=== PATIENT | female | born 1960 | race Caucasian/White ===

== ENCOUNTER → 2017-03-24 | Outpatient (REF) | payer BC ==
[~2017-03-24] MED LIST: NAPR250T45 PO; PRIL20CA9 PO; TYLE500T78 PO; ZYRT10CA PO
== END ==
LOC: M LAB REF 16:14
PROVIDERS: ATTEND Otolaryngology
DX: K14.3 Hypertrophy of tongue papillae (principal); R23.4 Changes in skin texture; L85.8 Other specified epidermal thickening

== ENCOUNTER → 2017-10-05 | Outpatient (REF) | payer BC | LOC: M LAB REF 13:37 | PROVIDERS: ATTEND Otolaryngology | DX: C02.1 Malignant neoplasm of border of tongue (principal) ==

== ENCOUNTER → 2018-06-14 | Outpatient (REF) | payer BC | LOC: M LAB REF 18:59 | DX: C02.1 Malignant neoplasm of border of tongue (principal) | CPT/HCPCS: 88305 ==

== ENCOUNTER 2022-05-08 11:13 | Day surgery (SDC) | payer OTHER ==
[~2022-05-08] VITALS: Ht 157.5 cm; Wt 82.1 kg
[~2022-05-08 11:13] MED LIST changes: +ACET-683 PO; +ALLE10TA62 PO; +D 101000 PO; +HUMI40KI SC; +NAPR-849 PO; -NAPR250T45 PO; +NAPR250T82 PO; +OMEP10CASR PO; +dexameTHASONE 4 MG/ML 1ML VIAL (J1100 PER 1MG) IV ONE
[2022-05-08] MEDS ORDERED: LR 1,000 ML IV SCH (11:25)
[2022-05-08 12:56] LABS: INR 0.96; PROTHROMBIN TIME 13.1 SECONDS (12.7-14.5)
[2022-05-08 12:57] LABS: PARTIAL THROMBOPLASTIN TIME 31.9 SECONDS (25.9-37.0)
[2022-05-08] MEDS ORDERED: OXYMETAZOLINE 0.05% NASAL SPRAY (AFRIN) As Ordered ONE ×2 (14:23→14:36)
[2022-05-08] MEDS ORDERED: LIDOCAINE W/EPINEPHRINE 1% 20ML VIAL As Ordered ONE (14:23)
[2022-05-08] MEDS ORDERED: METHYLENE BLUE 0.5% (5MG/ML) 10 ML AMP (PROVAYBLUE) As Ordered ONE (14:23)
[2022-05-08] MEDS ORDERED: dexameTHASONE 4 MG/ML 1ML VIAL (J1100 PER 1MG) As Ordered ONE (14:41)
[2022-05-08] MEDS ORDERED: fentaNYL 100 MCG/2 ML INJECTION As Ordered ONE ×2 (14:41→15:04)
[2022-05-08] MEDS ORDERED: propofoL 200 MG/20 ML VIAL As Ordered ONE (14:41)
[2022-05-08] MEDS ORDERED: LIDOCAINE 2% 100MG/5ML SDV (FOR ANES.) As Ordered ONE (14:41)
[2022-05-08] MEDS ORDERED: ROCURONIUM BROMIDE 50 MG/5 ML VIAL As Ordered ONE (14:41)
[2022-05-08] MEDS ORDERED: METOCLOPRAMIDE INJ 10MG/2ML VIAL (J2765 PER 1) As Ordered ONE (14:41)
[2022-05-08] MEDS ORDERED: ONDANSETRON 4MG 2ML VIAL As Ordered ONE (14:41)
[2022-05-08] MEDS ORDERED: SUGAMMADEX SODIUM 500 MG/5 ML VIAL (BRIDION) As Ordered ONE (14:41)
[2022-05-08] MEDS ORDERED: MIDAZOLAM INJ 2MG/2ML VIAL (J2250 PER 1MG) As Ordered ONE (14:41)
[2022-05-08] MEDS ORDERED: ACETAMINOPHEN 1000MG 100ML IV BTL (OFIRMEV) (J0131 PER 10MG) As Ordered ONE (15:13)
[2022-05-08] MEDS ORDERED: SILVER NITRATE APPLICATOR (1 = QTY 10) As Ordered ONE (15:45)
[2022-05-08 17:35] VITALS: BP 146/84
== END 2022-05-08 17:46 | disposition home or self-care (01) ==
LOC: M SDC 11:13
PROVIDERS: ATTEND Otolaryngology
DX: B49 Unspecified mycosis (principal); K13.29 Other disturbances of oral epithelium, including tongue; R23.4 Changes in skin texture; K14.0 Glossitis; M06.9 Rheumatoid arthritis, unspecified; K21.9 Gastro-esophageal reflux disease without esophagitis; Z88.8 Allergy status to other drugs, medicaments and biological substances
CPT/HCPCS: 31536; 36415; 85610; 85730; 88305; 88312; 93005; J0131; J1100; J2250; J2405; J2765; J3010; Q9968

== ENCOUNTER 2024-02-04 07:57 | Day surgery (SDC) | payer OTHER ==
[~2024-02-04] VITALS: Ht 149.9 cm; Wt 83.9 kg
[~2024-02-04 07:57] MED LIST changes: +ALEV220T22 PO; +CALTCHW5 PO; +IRON65TA2 PO; +bone health PO; -dexameTHASONE 4 MG/ML 1ML VIAL (J1100 PER 1MG) IV ONE
[2024-02-04] MEDS ORDERED: LR 1,000 ML IV SCH ×2 (08:40→11:35)
[2024-02-04] MEDS ORDERED: ACETAMINOPHEN 1000MG 100ML IV BAG As Ordered ONE (09:47)
[2024-02-04] MEDS ORDERED: fentaNYL 100 MCG/2 ML INJECTION As Ordered ONE (09:47)
[2024-02-04] MEDS ORDERED: ONDANSETRON 4MG 2ML VIAL As Ordered ONE (09:47)
[2024-02-04] MEDS ORDERED: MIDAZOLAM INJ 2MG/2ML VIAL As Ordered ONE (09:47)
[2024-02-04] MEDS ORDERED: propofoL 200 MG/20 ML VIAL As Ordered ONE (09:48)
[2024-02-04] MEDS ORDERED: LIDOCAINE 2% 100MG/5ML SDV (FOR ANES.) As Ordered ONE (09:49)
[2024-02-04] MEDS ORDERED: SUGAMMADEX SODIUM 500 MG/5 ML VIAL (BRIDION) As Ordered ONE (09:49)
[2024-02-04] MEDS ORDERED: ROCURONIUM BROMIDE 50MG/5ML VIAL As Ordered ONE (09:49)
[2024-02-04] MEDS ORDERED: LIDOCAINE W/EPINEPHRINE 1% 20ML VIAL As Ordered ONE (10:11)
[2024-02-04] MEDS ORDERED: OXYMETAZOLINE 0.05% NASAL SPRAY (AFRIN) As Ordered ONE (10:16)
[2024-02-04] MEDS ORDERED: ONDANSETRON 4MG 2ML VIAL IV PRN (11:35)
[2024-02-04] MEDS ORDERED: HYDROMORPHONE HCL 0.5 MG/ 0.5 ML SYRINGE IV PRN (11:35)
[2024-02-04] MEDS ORDERED: oxyCODONE 5MG TAB PO PRN (11:35)
[2024-02-04] MEDS ORDERED: fentaNYL 100 MCG/2 ML INJECTION IV PRN (11:35)
[2024-02-04 12:20] VITALS: BP 166/86; TEMP 97; O2SAT 94
[2024-02-05] MEDS ORDERED: UNRESOLVED CLARIFICATION ENTRY XX SCH (00:01)
== END 2024-02-04 12:40 | disposition home or self-care (01) ==
LOC: M SDC 07:57
PROVIDERS: ATTEND Otolaryngology
DX: K13.6 Irritative hyperplasia of oral mucosa (principal); K14.0 Glossitis; B37.0 Candidal stomatitis; Z85.818 Personal history of malignant neoplasm of other sites of lip, oral cavity, and pharynx; J30.2 Other seasonal allergic rhinitis; Z79.899 Other long term (current) drug therapy; Z87.891 Personal history of nicotine dependence
CPT/HCPCS: 41105; 88305; J0131; J1100; J2250; J2405; J3010

== ENCOUNTER 2025-05-30 12:34 | Day surgery (SDC) | payer MEDICARE ==
[~2025-05-30] VITALS: Ht 154.9 cm; Wt 81.5 kg
[~2025-05-30 12:34] MED LIST changes: +IBUP200C90 PO; +dexAMETHasone 4 MG/ML 1 ML VIAL IV ONE
[2025-05-30] MEDS ORDERED: MIDAZOLAM INJ 2 MG/2 ML VIAL As Ordered ONE (14:44)
[2025-05-30] MEDS ORDERED: LIDOCAINE 2% 100 MG/5 ML SDV (FOR ANES.) As Ordered ONE (14:47)
[2025-05-30] MEDS ORDERED: dexAMETHasone 4 MG/ML 1 ML VIAL As Ordered ONE (14:48)
[2025-05-30] MEDS ORDERED: ONDANSETRON 4MG 2ML VIAL As Ordered ONE (14:48)
[2025-05-30] MEDS ORDERED: ROCURONIUM BROMIDE 50MG/5ML VIAL As Ordered ONE (14:48)
[2025-05-30] MEDS ORDERED: ACETAMINOPHEN 1000MG/100ML IV BAG As Ordered ONE (15:11)
[2025-05-30] MEDS ORDERED: PHENYLephrine 500MCG 5ML (100MCG/ML) SYRINGE As Ordered ONE (15:51)
[2025-05-30] MEDS ORDERED: ESMOLOL 100 MG/10 ML VIAL As Ordered ONE (16:00)
[2025-05-30] MEDS: LIDOCAINE W/EPINEPHrine 1% 20 ML VIAL As Ordered ONE (16:00)
[2025-05-30] MEDS ORDERED: SUGAMMADEX SODIUM 500 MG/5 ML VIAL As Ordered ONE (16:35)
[2025-05-30] MEDS ORDERED: LR 1,000 ML IV SCH (16:50)
[2025-05-30] MEDS ORDERED: HYDROMORPHONE HCL 0.5 MG/0.5 ML SYRINGE IV PRN (17:40)
[2025-05-30] MEDS: ONDANSETRON 4MG 2ML VIAL IV PRN (17:46)
[2025-05-30 18:15] VITALS: BP 133/75; TEMP 97.3; O2SAT 96
== END 2025-05-30 18:35 | disposition home or self-care (01) ==
LOC: M SDC 12:34
PROVIDERS: ATTEND Otolaryngology
DX: C02.8 Malignant neoplasm of overlapping sites of tongue (principal); M06.9 Rheumatoid arthritis, unspecified; Z79.899 Other long term (current) drug therapy; K21.9 Gastro-esophageal reflux disease without esophagitis; Z22.7 Latent tuberculosis; Z90.89 Acquired absence of other organs; Z88.8 Allergy status to other drugs, medicaments and biological substances
CPT/HCPCS: 41112; 88305; J0131; J1100; J1805; J2250; J2371; J2405; J3010

== ENCOUNTER → 2025-07-25 | Outpatient (CLI) | payer MEDICARE ==
[~2025-07-25] MED LIST changes: +IRON27TA2 PO; -dexAMETHasone 4 MG/ML 1 ML VIAL IV ONE
== END ==
LOC: M ONCR 13:06
PROVIDERS: ATTEND General Practice
DX: C02.1 Malignant neoplasm of border of tongue (principal); Z87.891 Personal history of nicotine dependence; Z90.49 Acquired absence of other specified parts of digestive tract; Z98.51 Tubal ligation status; Z80.0 Family history of malignant neoplasm of digestive organs; Z88.8 Allergy status to other drugs, medicaments and biological substances; Z91.09 Other allergy status, other than to drugs and biological substances; Z79.1 Long term (current) use of non-steroidal anti-inflammatories (NSAID); Z79.899 Other long term (current) drug therapy